=== PATIENT | male | born 1965 | race Caucasian/White ===

== ENCOUNTER → 2016-08-14 19:33 | Outpatient (CLI) | payer OTHER ==
[2016-08-14 19:58] LABS: ALBUMIN 4.1 g/dL (3.4-5.0); ANION GAP 13.4 mmol/L (8-16); BILIRUBIN - TOTAL 0.51 mg/dL (0.2-1.3); CALCIUM 8.9 mg/dL (8.5-10.1); CARBON DIOXIDE 28.9 mmol/L (21.0-32.0); CHOL - HDL RATIO 5.2 ratio (2.3-4.9); CREATININE - SERUM 1.2 mg/dL (0.6-1.3); LDL-HDL RATIO 3.7 ratio (1.5-3.5); POTASSIUM - SERUM 4.3 mmol/L (3.5-5.1); PROTEIN - SERUM 7.6 g/dL (6.4-8.2)
== END | disposition home or self-care (01) ==
LOC: D.LABREF 19:33
PROVIDERS: Family Medicine
DX: Z00.00 Encounter for general adult medical examination without abnormal findings (principal)